=== PATIENT | female | born 1995 | race Caucasian/White ===

== ENCOUNTER → 2017-04-20 | Outpatient (CLI) | payer OTHER ==
[~2017-04-20] MED LIST: ACETAMINOPHEN-1 EAC1 PO; FLONASE 0.05%50 MCG NASAL; KEFLEX500 MG PO
== END ==
LOC: M.RAD 09:39
DX: S59.902A Unspecified injury of left elbow, initial encounter (principal); X58.XXXA Exposure to other specified factors, initial encounter; Y93.89 Activity, other specified; Y92.89 Other specified places as the place of occurrence of the external cause; Y99.8 Other external cause status